=== PATIENT | male | born 2000 | race Caucasian/White ===

== ENCOUNTER 2022-01-20 09:12 | Observation (INO) | payer OTHER, SELFPAY ==
--- NOTE | ~2022-01-20 | CT_ITS ---
EXAMINATION: CT ABDOMEN AND PELVIS WITH CONTRAST CLINICAL INFORMATION: Right lower quadrant pain and tenderness COMPARISON: None TECHNIQUE: Multidetector volumetric images were obtained from the superior aspect of the liver through the pubic symphysis following administration 85 mL of Omnipaque 350 intravenous contrast. Sagittal and coronal reformatted images were obtained on the technologist's workstation. Oral contrast: No This CT examination was performed using dose optimization techniques as appropriate, variously including the following: *Automated exposure control *Adjustment of mA and/or kV according to patient size (this includes techniques or standardized protocols for targeted exams where dose is matched to indication/reason for exam; i.e. extremities or head) *Use of iterative reconstruction technique DLP: 729 mGy-cm FINDINGS: LUNG BASES: The visualized lung bases are unremarkable. LIVER, GALLBLADDER, AND BILIARY TREE: The liver is normal in size, shape, and attenuation. No focal hepatic lesion or biliary ductal dilatation is present. The gallbladder is unremarkable with no evidence of radiopaque gallstones, gallbladder wall thickening, or obvious pericholecystic inflammatory changes. PANCREAS: Unremarkable. SPLEEN: Unremarkable. ADRENAL GLANDS: Unremarkable. KIDNEYS AND URETERS: The kidneys are normal in size, shape, and attenuation. No hydronephrosis, hydroureter, or calculi seen. No perinephric stranding. BLADDER: Decompressed with no gross abnormality. GASTROINTESTINAL TRACT: The stomach is unremarkable. Normal caliber small bowel. No obstruction. There is mild inflammation noted along the course of the appendix. The appendix is normal in size, measuring up to 0.7 cm. No fluid collection. The remainder of the colon is unremarkable. No free air. ABDOMINAL WALL: No significant hernia is appreciated. LYMPH NODES: Normal. VASCULAR: Unremarkable. PELVIC VISCERA: The prostate and seminal vesicles are unremarkable. OSSEOUS STRUCTURES: No acute or suspicious osseous abnormality. CT/CT abdomen pelvis w con IMPRESSION: Mild inflammatory changes are seen along the course of the appendix. Although the appendix is not dilated, this is concerning for acute appendicitis. Fleischner guidelines were followed.
[2022-01-20 10:22] VITALS: PULSE 84; RESP 16; TEMP 36.6; O2SAT 100; BMI 32.5
--- NOTE | 2022-01-20 10:50 | ED.ABDPAIN ---
HPI - Abdominal Pain General Chief Complaint: Abdominal Pain Stated Complaint: appendix pain Time Seen by Provider: 01/20/22 10:37 Source: patient Mode of arrival: ambulatory Limitations: no limitations History of Present Illness HPI narrative: 21-year-old healthy male presents to the ER for evaluation of acute onset of right lower quadrant pain that started suddenly at 02:00 this morning. He reports the pain is ?manageable when he is lying down or sitting still. The pain is worse when he walks, moves around. He denies any nausea, vomiting, chills, fevers. He reports he last had a bowel movement this morning and it was loose watery diarrhea. No blood. He has never had any abdominal surgeries. The pain does not radiate. He denies any urinary symptoms. MD elicited complaint: abdominal pain Pertinent past history: none Onset (ago): hour(s) (8) Pain Consistency: constant Location: RLQ Severity: moderate Pain scale (0-10): 6 Quality: aching Radiation: none Migration to: no migration Exacerbating factors: movement Relieving factors: rest Associated symptoms: diarrhea Related Data Allergies Allergy/AdvReac Type Severity Reaction Status Date / Time Unable to Assess Allergy Unverified 01/20/22 10:38 Review of Systems Review of Systems Constitutional: No Fever, No Chills ENT/Mouth: No sore throat, No Rhinorrhea, No Swallowing Difficulty Cardiovascular: No Chest Pain, No SOB, No Orthopnea, No Edema Respiratory: No Cough, No Sputum Gastrointestinal: No Nausea, No Vomiting,+ Diarrhea, + abdominal Pain, No Hematochezia, No Melena Genitourinary: No Dysuria, No Urinary Frequency, No Hematuria Musculoskeletal: No joint pain, No Myalgias Skin: No Skin Lesions, No rash Neuro: No Weakness, No Numbness, No Dizziness, No Headache Psych: No Anxiety/Panic, No Depression Heme/Lymph: No Bruising, No Lymphadenopathy Endocrine: No Polyuria, No Polydipsia PMFSH Social History Social History Advance Directives: No Advance Directives Information Provided: No Physical Exam ED Vital Signs: Vital Signs - 24 hr 01/20/22 10:22 Temperature 97.9 F Pulse Rate 84 Respiratory Rate 16 Pulse Oximetry 100 Oxygen Delivery Method Room Air BMI result Body Mass Index 32.5 Appearance: Alert. Oriented X3. No acute distress. Non-toxic appearing Eyes: Pupils equal, round and reactive to light. ENT: Pharynx normal. Neck: Normal inspection. Neck supple. CVS: Normal heart rate and rhythm. Pulses normal. Respiratory: No respiratory distress. Breath sounds normal. Abdomen: Soft. TTP at RLQ, no rebound or guarding. +BS x4 Skin: Skin warm and dry. Normal skin color. Normal skin turgor. No rashes. Extremities: No lower extremity edema. Neuro: Oriented X 3. Slow but steady gait. Pain in RLQ reproduced with slight jump Course Course Course Narrative: 21 yo male with no significant medical history presents to the ER for evaluation of acute onset of right lower quadrant pain that started 02:00 today. He appears well. He has tenderness in his right lower quadrant but is abdomen is nice and soft. His vital signs are within normal limits. Will plan to get lab workup and CT scan for further evaluation. Reevaluation(s) Reevaluation #1: Labs are reassuring. Normal WBC. Pain is well controlled when he is still. Holding off on pain meds for now. CT scan is pending. Reevaluation #2: CT scan showing inflammation, consistent with acute appendicitis. Dr. Caldrea was consulted who come evaluate the patient. IV Zosyn ordered in the meantime. Reevaluation #3: Dr. Caldera evaluated the patient and will admit. Patient updated on plan of care. Consultations Consultation #1: General surgery-Dr. Caldera MDM - Abdominal Pain Lab Data Result diagrams: 01/20/22 11:19 01/20/22 11:19 Labs: Lab Results 01/20/22 01/20/22 Range/Units 11:19 11:19 WBC 10.4 (4.8-10.8) X10*3/uL RBC 5.56 (4.60-5.80) X10*6/uL Hgb 15.6 (14.0-18.0) g/dl Hct 44.6 (42.0-52.0) % MCV 80.2 (80.0-98.0) fL MCH 28.1 (27.0-33.0) pg MCHC 35.0 (31.0-36.0) g/dl RDW 12.1 (11.0-16.0) % Plt Count 173 (160-400) X10*3/uL MPV 11.9 (9.4-12.4) fL Immature Gran % (Auto) 0.3 (0.0-0.4) % Neut % (Auto) 81.0 H (45-73) % Lymph % (Auto) 12.1 L (20-40) % [place] % (Auto) 6.2 (2-11) % Eos % (Auto) 0.1 (0-4) % Baso % (Auto) 0.3 (0-2) % Lymph # (Auto) 1.3 (1.2-4.9) X10*3/uL [place] # (Auto) 0.6 (0.1-1.2) X10*3/uL Eos # (Auto) 0.0 (0.0-0.4) X10*3/uL Baso # (Auto) 0.0 (0.0-0.2) X10*3/uL Abs Immat Gran (auto) 0.03 (0.00-0.03) X10*3/uL Absolute Neuts (auto) 8.4 H (2.0-8.3) x10*3/uL Absolute Nucleated RBC 0.000 (0.0-0.012) X10*3/uL Nucleated RBC % (auto) 0.0 (0.0-0.2) /100WBC Sodium 140 (135-145) mmol/L Potassium 4.2 (3.3-5.1) mmol/L Chloride 104 (96-108) mmol/L Carbon Dioxide 27 (22-29) mmol/L Anion Gap 13 (12-20) BUN 15 (9-16) mg/dL Creatinine 1.21 (0.5-1.4) mg/dL Estim Creat Clear Calc 131.4 Estimated GFR > 60 Random Glucose 101 (60-115) mg/dL Calcium 9.4 (8.4-10.2) mg/dL Magnesium 1.9 (1.6-2.6) mg/dL Total Bilirubin 0.6 (0.0-1.0) mg/dL Direct Bilirubin 0.2 (0.0-0.5) mg/dL AST 17 (5-37) U/L ALT 21 (0-40) U/L Alkaline Phosphatase 39 (39-117) U/L Total Protein 7.7 (6.5-8.0) g/dL Albumin 4.7 (3.5-5.0) g/dL Discharge Plan Discharge Clinical Impression: Acute appendicitis Patient Disposition: Admitted As Inpatient
[2022-01-20 11:23] LABS: MANUAL DIFF FLAG NO
[2022-01-20 11:27] LABS: Basophils Percent Auto 0.3 % (0-2); Eosinophils Percent Auto 0.1 % (0-4); Hematocrit 44.6 % (42.0-52.0); Hemoglobin 15.6 g/dl (14.0-18.0); Imm Gran Abs Auto 0.03 X10*3/uL (0.00-0.03); Imm Gran Pct Auto 0.3 % (0.0-0.4); Lymphocytes Absolute Auto 1.3 X10*3/uL (1.2-4.9); Lymphocytes Percent Auto 12.1 % (20-40); Mean Corpuscular Hemoglobin 28.1 pg (27.0-33.0); Mean Corpuscular Volume 80.2 fL (80.0-98.0); Mean Platelet Volume 11.9 fL (9.4-12.4); Monocytes Absolute Auto 0.6 X10*3/uL (0.1-1.2); Monocytes Percent Auto 6.2 % (2-11); Neutrophils Absolute Auto 8.4 x10*3/uL (2.0-8.3); Platelet Count 173 X10*3/uL (160-400); Red Blood Count 5.56 X10*6/uL (4.60-5.80); Red Cell Distribution Width 12.1 % (11.0-16.0); White Blood Count 10.4 X10*3/uL (4.8-10.8)
[2022-01-20 11:44] LABS: Alanine Aminotransferase 21 U/L (0-40); Albumin Level 4.7 g/dL (3.5-5.0); Alkaline Phosphatase 39 U/L (39-117); Anion Gap 13 (12-20); Aspartate Amino Transferase 17 U/L (5-37); Bilirubin Direct 0.2 mg/dL (0.0-0.5); Bilirubin Total 0.6 mg/dL (0.0-1.0); Blood Urea Nitrogen 15 mg/dL (9-16); Calcium 9.4 mg/dL (8.4-10.2); Carbon Dioxide 27 mmol/L (22-29); Chloride 104 mmol/L (96-108); Creatinine Clr Calc Pharmacy 131.4; Estimated Glomerular Filt Rate > 60; Glucose Random 101 mg/dL (60-115); Magnesium 1.9 mg/dL (1.6-2.6); Potassium 4.2 mmol/L (3.3-5.1); Sodium 140 mmol/L (135-145); Total Protein 7.7 g/dL (6.5-8.0)
[2022-01-20] MEDS: iohexoL 350 MG/ML 100 ML INFUS..BTL IV (12:54)
[2022-01-20] MEDS: Piperacillin Sodium/Tazobactam 3.375 GM in 0.9 % Sodium Chloride 50 ML IV ×2 (13:59→20:19)
--- NOTE | 2022-01-20 14:15 | PHA.MEDREC ---
Pharmacy Consult ? Medication Reconciliation Pharmacy has completed the medication reconciliation. Patient reports only using ibuprofen for headaches or back pain.
[2022-01-20 14:25] VITALS: BP 137/81; PULSE 92; RESP 16; TEMP 37.2; O2SAT 96
--- NOTE | 2022-01-20 14:43 | PM.HPGS ---
History of Present Illness History of Present Illness Date of Service: 01/20/22 Chief complaint: RIGHT LOWER QUADRANT ABDOMINAL PAIN EARLY APPENDIC Narrative: Ryan Howard is a 21 year old male presenting with complaints of right lower quadrant pain. Pain began at 02:00 o'clock this morning and was localized to the right lower quadrant. He initially thought the pain was a muscle pull and was about a 5/10. The pain is not changed significantly in severity or location. The pain does increase with ambulation and improves when lying still. He denies nausea, vomiting, anorexia, fever, chills, diarrhea or constipation. He did report eating some bad food from [employer] yesterday. In the emergency department patient was noted to be tender in the right lower quadrant. Admitting laboratories revealed WBC of 10. CT abdomen and pelvis revealed a normal sized appendix with no surrounding fluid however some mild inflammatory changes surrounding the appendix suggestive of possibly early appendicitis. No appendicolith was identified. The patient is admitted to the surgical service for IV antibiotics and possible appendectomy if his symptoms worsen. Review of Systems Review of Systems: Yes all other systems are reviewed and are negative Constitutional: Constitutional: Denies chills, Denies fever(s), Denies night sweats and Denies poor appetite Cardiovascular: Cardiovascular: Denies dyspnea Respiratory: Respiratory: Denies cough and Denies dyspnea Gastrointestinal: Gastrointestinal: Reports abdominal pain, Denies constipation, Denies diarrhea, Denies nausea and Denies vomiting PMFSH Social History Social History Advance Directives: No Advance Directives Information Provided: No Meds Allergies Allergy/AdvReac Type Severity Reaction Status Date / Time Unable to Assess Allergy Unverified 01/20/22 10:38 Active Medications: Current Medications Acetaminophen (Acetaminophen 325 Mg Tablet) 650 mg PO QID PRN PRN Reason: headache, temp > 101 Hydromorphone HCl (Hydromorphone Hcl 1 Mg/Ml Syringe) 0.5 mg IVPUSH Q4H PRN; Protocol PRN Reason: Pain, Severe (Pain Scale 7-10) Dextrose/Lactated Ringer's (D5lr) 1,000 mls @ 80 mls/hr IVCONT .[id number] DWIGHT Piperacillin Sod/Tazobactam (Sod 3.375 gm/ Sodium Chloride) 50 mls @ 100 mls/hr IV Q6H DWIGHT Ondansetron HCl (Ondansetron Hcl 4 Mg/2 Ml Vial) 4 mg IVPUSH QID PRN PRN Reason: Nausea Oxycodone HCl (Oxycodone Hcl Immed Release 5 Mg Tablet) 5 mg PO Q6H PRN PRN Reason: Pain, Moderate (Pain Scale 4-6 Pharmacy Consult (Consult Rx Perform Med Rec) 1 each MISCELLANE ONCE PRN PRN Reason: Consult order Sodium Chloride (0.9 % Sodium Chloride Flush 3 Ml Syringe) 3 ml IVFLUSH QSHIFT [facility] Zolpidem Tartrate (Zolpidem Tartrate 5 Mg Tablet) 5 mg PO BEDTIME PRN PRN Reason: Insomnia Home Medications Medication Instructions Recorded Confirmed Last Taken Type ibuprofen 400 mg tablet 400 mg PO Q8H PRN Headache 01/20/22 01/20/22 01/18/22 History Physical Exam Vital Signs: Vital Signs: Last Vital Signs Temp 98.9 F 01/20/22 14:25 Pulse 92 01/20/22 14:25 Resp 16 01/20/22 14:25 BP 137/81 01/20/22 14:25 Pulse Ox 96 01/20/22 14:25 O2 Del Method 01/20/22 14:25 BMI result Body Mass Index 32.5 Const: General: healthy appearing, no acute distress and well developed Nutritional Appearance: well nourished Orientation/consciousness: patient oriented x3 Limitations: no limitations HEENT: Head: Yes normocephalic and Yes atraumatic Ears: hearing grossly normal bilaterally Resp: Effort & Inspection: normal respiratory effort, no audible wheezes, no cough and no respiratory distress Auscultation: clear to auscultation bilaterally GI: Inspection: Yes normal to inspection Palpation (GI): Soft to palpation, Tenderness to palpation present (GI) in the RLQ; with no rebound tenderness and Rovsing's sign negative, no guarding, not rigid and No hepatosplenomegaly present Percussion: Yes normal to percussion Auscultation: normal bowel sounds Rectal Exam - Male: Yes deferred Skin: General skin exam: no rashes or lesions noted Neuro: General: patient oriented x3 Extrem: General: Yes no clubbing, cyanosis or edema Results Results Labs: Short CBC 08/26/22 Range/Units 11:19 WBC 10.4 (4.8-10.8) X10*3/uL Hgb 15.6 (14.0-18.0) g/dl Hct 44.6 (42.0-52.0) % Plt Count 173 (160-400) X10*3/uL BMP 01/20/22 11:19 Sodium 140 Potassium 4.2 Chloride 104 Carbon Dioxide 27 BUN 15 Creatinine 1.21 Calcium 9.4 Liver Function 01/20/22 Range/Units 11:19 Total Bilirubin 0.6 (0.0-1.0) mg/dL Direct Bilirubin 0.2 (0.0-0.5) mg/dL AST 17 (5-37) U/L ALT 21 (0-40) U/L Alkaline Phosphatase 39 (39-117) U/L Albumin 4.7 (3.5-5.0) g/dL Assessment and Plan (1) Acute appendicitis: Status: Acute Plan 21-year-old male patient presenting with complaints of abdominal pain in the right lower quadrant which began approximately 2 a.m. this morning. Remained in the right lower quadrant without radiation in seems to increase with the ambulation. He denies nausea, vomiting, fever or chills. He also denies anorexia. On examination he is tender in the right lower quadrant without rebound, guarding, or rigidity. Admitting laboratories revealed normal WBC and CT of the abdomen reveals some mild inflammatory changes of the appendix with no fecalith within the appendix. Patient appears to have very mild and early appendicitis based on the CT findings. We discussed laparoscopic appendectomy verses non operative management with IV antibiotics. As the symptoms are very mild and there is no fecalith by CT, he would be a good candidate for non operative management. After discussion of the risks, alternatives in benefits, he agrees with non operative management with IV antibiotics. He will be placed on Zosyn and labs will be rechecked in the morning. As is abdomen is soft and nondistended with minimal tenderness I will start him on a diet tonight. If he feels improved tomorrow without nausea, vomiting, or increased abdominal pain and is WBC remains normal he may be converted to oral antibiotics and discharged to home with follow-up in my office in approximately 1 week. He expressed understanding and agrees with this plan. Quality Stroke Does the patient have a stroke diagnosis?: No VTE Prior VTE?: No VTE Risk Level:: Surgical - low VTE Device Contraindication: N/A - Device Ordered VTE Drug Contraindication: Treatment Not Indicated Procedures Date of Service Date of Service: 01/20/22
[2022-01-20] MEDS: Dextrose 5 % and Lactated Ring 1,000 ML 80 ML IVCONT (15:40)
--- NOTE | 2022-01-20 16:36 | MHC.CM.PN ---
CM met with patient assigned to observation. SABINE 01/20. Pfizer x2. Declines HCP. Employed. Lives with mother. No DME/services. D/C plan is home without services. Will f/u with surgeon in a week per Dr. Caldera's notes. Pt will arrange transportation home. CM to follow for d/c needs.
[2022-01-20 17:04] LABS: COVID-19 Test Negative (Negative)
--- NOTE | 2022-01-20 18:01 | PC.NURSE ---
PT INFORMED TW THAT HE WANTS TO SPEAK WITH DR LEOS R/T STAYING IN THE HOSPITAL OVERNIGHT OR GOING HOME AND TREATING HIS APPENDICITIS WITH PO ABX. NOTIFIED, AWAITING RESPONCE.
--- NOTE | 2022-01-20 18:25 | PC.NURSE ---
PLAN FOR PT TO RECEIVE 20:00 DOSE OF IV ABX THEN D/C HOME, DR LEOS, PT AND FAMILY ON BOARD. T/W EXPLAINED THE RISKS OF LEAVING TO THE PT AND FAMILY MEMBER AT BEDSIDE, ENCOURAGED TO COME BACK IF CHANGE IN SX, SHARP PAIN, FEVERS, N/V AND GENERALLY FEELING THE NEED TO RETURN.
--- NOTE | 2022-01-20 18:32 | PM.DS ---
DS: Providers Provider Date of Service: 01/20/22 Date of admission: 01/20/22 13:57 Date of discharge: 01/20/22 Primary care physician: Mikhail Hernandez MD Admitting clinician: Paul Caldera Discharging clinician: Paul Caldera DS: Diagnosis Discharge Diagnosis (1) Acute appendicitis: Status: Acute DS: Summary Hospital Course Hospital Course: Ryan Howard is a 21 year old male presenting with complaints of right lower quadrant pain.? Pain began at 02:00 o'clock the morning of 01/20/2022 and was localized to the right lower quadrant.? He initially thought the pain was a muscle pull and was about a 5/10.? The pain did not change significantly in severity or location.? The pain does increase with ambulation and improves when lying still.? He denied nausea, vomiting, anorexia, fever, chills, diarrhea or constipation.? He did report eating some bad food from [employer] yesterday.? In the emergency department patient was noted to be tender in the right lower quadrant.? Admitting laboratories revealed WBC of 10.? CT abdomen and pelvis revealed a normal sized appendix with no surrounding fluid however some mild inflammatory changes surrounding the appendix suggestive of possibly early appendicitis.? No appendicolith was identified.? On examination the patient is found to be tender in the right lower quadrant to deep palpation but without rebound, guarding, or rigidity. There are no peritoneal signs appreciated. Patient otherwise appears much more comfortable. The initial plan was for the patient to be placed on IV antibiotics and observed overnight. He was also given the option of being discharged home on oral antibiotics or proceeding to surgery for laparoscopic appendectomy. Patient later decided that he felt comfortable going home. He was placed on oral antibiotics after receiving 2 doses of IV antibiotic and subsequently been discharged to home. He was instructed to return to the Pain worsen or if he develops fever or chills. He should follow up my office in approximately 1 week. Status at Discharge Functional status at discharge: independent ambulation Overall status at discharge: patient is back to baseline Time Spent with Patient Time attestation: Total time spent providing and/or coordinating discharge services: Discharge coordination time: Less than 30 minutes Quality: Safe Use of Opioids Does Pt have an Active Cancer Diagnosis on the Problem List?: No Quality: Stroke Does the patient have a stroke diagnosis?: No Physical Exam Vital Signs: Vital Signs: Last Vital Signs Temp 98.9 F 01/20/22 14:25 Pulse 92 01/20/22 14:25 Resp 16 01/20/22 14:25 BP 137/81 01/20/22 14:25 Pulse Ox 96 01/20/22 14:25 O2 Del Method 01/20/22 14:25 BMI result Body Mass Index 32.5 Const: General: healthy appearing, no acute distress and well developed Nutritional Appearance: well nourished Orientation/consciousness: patient oriented x3 Limitations: no limitations HEENT: Head: Yes normocephalic and Yes atraumatic Ears: hearing grossly normal bilaterally Resp: Effort & Inspection: normal respiratory effort, no audible wheezes, no cough and no respiratory distress Auscultation: clear to auscultation bilaterally GI: Inspection: Yes normal to inspection Palpation (GI): Soft to palpation, Tenderness to palpation present (GI) in the RLQ; with no rebound tenderness and Rovsing's sign negative, no guarding, not rigid and No hepatosplenomegaly present Percussion: Yes normal to percussion Auscultation: normal bowel sounds Rectal Exam - Male: Yes deferred Skin: General skin exam: no rashes or lesions noted Neuro: General: patient oriented x3 Extrem: General: Yes no clubbing, cyanosis or edema DS: Data Data Completed and Pending Labs on day of discharge: Laboratory Results - last 24 hr 01/20/22 01/20/22 01/20/22 11:19 11:19 16:44 WBC 10.4 RBC 5.56 Hgb 15.6 Hct 44.6 MCV 80.2 MCH 28.1 MCHC 35.0 RDW 12.1 Plt Count 173 MPV 11.9 Immature Gran % (Auto) 0.3 Neut % (Auto) 81.0 H Lymph % (Auto) 12.1 L [place] % (Auto) 6.2 Eos % (Auto) 0.1 Baso % (Auto) 0.3 Lymph # (Auto) 1.3 [place] # (Auto) 0.6 Eos # (Auto) 0.0 Baso # (Auto) 0.0 Abs Immat Gran (auto) 0.03 Absolute Neuts (auto) 8.4 H Absolute Nucleated RBC 0.000 Nucleated RBC % (auto) 0.0 Sodium 140 Potassium 4.2 Chloride 104 Carbon Dioxide 27 Anion Gap 13 BUN 15 Creatinine 1.21 Estim Creat Clear Calc 131.4 Estimated GFR > 60 Random Glucose 101 Calcium 9.4 Magnesium 1.9 Total Bilirubin 0.6 Direct Bilirubin 0.2 AST 17 ALT 21 Alkaline Phosphatase 39 Total Protein 7.7 Albumin 4.7 COVID-19 (EDU) Negative COVID-19 Clin Com See Note Discharge Plan Discharge Anticipated Discharge Date/Time: 01/20/22 20:13 Patient Disposition: Home, Self-Care Referrals: Mikhail Hernandez MD [Primary Care Provider] - 1 Week Paul Caldera MD [Physician] - 1 Week Discharge Medications: New amoxicillin-pot clavulanate [Augmentin] 500-125 mg tablet 1 tab PO Q8H Qty: 30 0RF Continued ibuprofen 400 mg Tablet 400 mg PO Q8H PRN (Reason: Headache) Discharge Orders: Discharge Order (Routine); Ordered 01/20/22 Ordered By: Irena Escalante Diet: Advance to usual diet Activity on Discharge: As tolerated Stand Alone Forms: Patient Portal Discharge page Care Plan Goals: Return to normal activity and diet without abdominal pain Health Concerns: Abdominal pain right lower quadrant Plan of Treatment: IV antibiotic converted to oral antibiotics Assessment: Early acute appendicitis Discharge Date/Time: 01/21/22 07:49
--- NOTE | 2022-01-20 20:14 | PC.NURSE ---
I spoke with Dr. Escalante at this time about this pts plan to be discharged after the completion of his 8pm Zosyn. She states that since the pt was originally given the option to be discharged from the ER he can in fact leave the ER as a discharge rather than as an AMA. She states she will have PO Augmentin ready for him at his pharmacy in the morning and requested that we encourage the pt to complete the course, to call surgery on Sunday to arrange for a follow up, and to return to the ED for anything new or worse. I relayed all of this to Ryan and he verbalized an understanding. At this time hes feeling well - mild RLQ abdominal pain and tenderness. NO nausea. No vomiting. He has taken ane ntire tray of food and PO fluids without difficulty. No fevers or chills or generalized aches. We will contionue to monitor and DC at completion of IV abx.
[2022-01-20] MEDS: Acetaminophen 325 MG TABLET 650 MG PO (20:25)
--- NOTE | 2022-01-20 20:27 | PC.NURSE ---
Assumed care of pt. at 1900. Pt. is wanting to go home after he receives his 2000 dose of abx and will contact surgery from home. Pt. complains of a headache and medicated with acetaminophen per JUL. Pt. resting comfortably in bed while abx run.
--- NOTE | 2022-01-20 22:06 | PC.NURSE ---
I assumed care of Ryan at 1900. At that time it was reported to me that Ryan, who initially informed the admitting surgeon that he would agree to be admitted, had decided he would prefer to be discharged. Initially the pt was given the option for admission or discharge by the admitting surgeon. Therefore I contacted surgeon eye care professional Boris who informed me that the pt could be officially discharged rather than signing out AMA even though he has already been formally admitted to the hospital. Laol GOLDEN also aware of this. Boris GOLDEN gave me verbal instructions to give to the pt at time of DC. We provided him with these instructions per surgery: Complete course of Augmentin that has been called in to your pharmacy. Return for new or worse symptoms. Call surgery first thing Sunday AM to schedule a follow up (contact info for [facility] provided). Pt was given DC papers with all of these instructions and he verbalized an understanding. He verbalized an understanding of all DC orders and ambulated out of the ED independently and with steady gait.
== END 2022-01-21 07:49 | disposition home or self-care (01) ==
LOC: HO.ED 10:49 → HO.EDOVER 14:09 → HO.S3 01-21 07:47
PROVIDERS: Physician Assistant; Admitting Provider Surgery; Emergency Provider Emergency Medicine; PCP Pediatrics; Visit Provider Surgery
DX: K35.80 Unspecified acute appendicitis (principal); I10 Essential (primary) hypertension; R10.31 Right lower quadrant pain; Z20.822 Contact with and (suspected) exposure to COVID-19; Z79.899 Other long term (current) drug therapy
CPT/HCPCS: 36415; 74177; 80048; 80076; 83735; 85025; 87635; 96365; 96366; 96375; 96376; 99218; 99284; J2543; Q9967

== ENCOUNTER → 2022-01-31 14:57 | Outpatient (BNVA) | payer OTHER, SELFPAY | PROVIDERS: PCP Pediatrics; Visit Provider Surgery | DX: K35.80 Unspecified acute appendicitis (principal) | CPT/HCPCS: 99212 ==

== ENCOUNTER 2022-02-06 10:28 | Day surgery (SDC) | payer OTHER, SELFPAY ==
--- NOTE | 2022-02-06 10:44 | P.CONAN_ITS ---
HPI - Anesthesia Eval Consult details Narrative: 21 yo male patient for laparoscopic appendectomy, possible open PMFSH Active Problems Active Problems: Healthy Past Medical History Medical History Acute appendicitis Family History Family history of problems with anesthesia: No Surgical History History of Problems with Anesthesia: No ([place] as a child. Does not remember procedure?stitches) Social History Social History Patient Tobacco Use Status: Never used Tobacco Use of substances other than those prescribed or required for medical reasons: No Are you DNR?: No Advance Directives: No Advance Directives Information Provided: Yes service: No Current occupational status: employed Meds Allergies Allergy/AdvReac Type Severity Reaction Status Date / Time No Known Allergies Allergy Verified 01/31/22 15:05 Active Medications: Current Medications Cefotetan Disodium 2 gm/ (Sodium Chloride) 50 mls @ 100 mls/hr IV PREOP ONE Stop: 02/06/22 11:08 Lactated Ringer's (Lr) 1,000 mls @ 100 mls/hr IVCONT .Q10H [facility] Home Medications Medication Instructions Recorded Confirmed Last Taken Type ibuprofen 400 mg tablet 400 mg PO Q8H PRN Headache 01/20/22 01/31/22 01/18/22 History Exam Exam Date and Time: February 06, 2022 1044 Height,Weight and Vital Signs: Height 6 ft 3 in Weight 115.666 kg Airway Mallampati Class: II TM Dist: >3cm Neck ROM: Full Loose/Missing/Broken Teeth: No Heart: RRR Lungs: CTAB Assessment and Plan Assessment Anesthesia Assessment: Anesthesia Plan Discussed and Chart Reviewed Final Anesthetic Review Family History of Problems with Anesthesia: No History of Problems with Anesthesia: No ([place] as a child. Does not remember procedure?stitches) NPO: Yes ASA Class: I Final Preanesthetic Review: No Changes in Pt Med Stat, Meds/Allgs Chart Reviewed, Consent Obtained/Reviewed and Anes Risks/Benef Reviewed Patient Risk: Low Procedure Risk: Low Assessment/Block/Sedation in SS: Assess/Block/Sedation-SS Anesthetic Plan Anesthetic Plan: GA Disposition: Standard PACU
[2022-02-06 10:55] VITALS: BMI 31.8
[2022-02-06] MEDS: Lactated Ringers 1,000 ML 100 ML IVCONT (11:18)
--- NOTE | 2022-02-06 13:27 | MHC.SHP ---
Pre-Procedural Eval Section A Date of Service: 02/06/22 The patient is an INPATIENT: No Changes since office visit: Yes Patient answered all questions; No Cold of Flu in the past 2 weeks, No New Medical Problems and No Changes in Medication The History & Physical has been completed within 30 days and I have reviewed it.: Yes Section B Chief Complaint: acute appendicitis Allergies: Allergies Allergy/AdvReac Type Severity Reaction Status Date / Time No Known Allergies Allergy Verified 01/31/22 15:05 Plan Diagnosis/Plan: Unchanged I have reviewed the history and physical and performed a pertinent physical examination on my patient. No changes have occurred unless specified.
--- NOTE | 2022-02-06 14:41 | P.OP_ITS ---
Operative Note Operative Note Date of Service: 02/06/22 Narrative: Preoperative diagnosis: Acute appendicitis Postoperative diagnosis: Same Procedure: Laparoscopic appendectomy Surgeon: Paul Caldera MD Asphalt Distributor Operator: Antonia Vergara PA-C, PATRIA Thomas Anesthesia: General endotracheal Indications for procedure: 21-year-old male patient presenting with complaints of abdominal pain in the right upper quadrant seen initially in the emergency department. Patient stay for several doses of antibiotics and fell improved. He was subsequently discharged home on oral antibiotics. He return to the office but was still having some mild discomfort in the right lower quadrant consistent with a mild acute appendicitis. He presents today for laparoscopic appendectomy. Operative findings: Minimal inflammation of the appendix Specimen: appendix Estimated blood loss: 1 mL Complications: non Procedure details: Patient was brought to the OR and placed in a supine position. After administering general anesthesia the patient's abdomen was prepped with ChloraPrep and draped in a sterile fashion. A surgical time-out was called and consent confirmed. Patient received preoperative antibiotics and Venodyne boots were in place. Local anesthesia consisting of 0.5% Sensorcaine with epinephrine was infiltrated in periumbilical region. A 5 mm incision was made below the umbilicus and carried down through subcutaneous tissue. A Veress needle was then inserted while elevating abdominal cavity with towel clips. After a positive drop test the abdomen was insufflated to a pressure of 15 mm of mercury. The Veress needle was removed and a 5 mm trocar inserted. The camera was then inserted in the abdomen explored. A 2nd 5 mm trocars placed in the lower midline. A 12 mm trocar was then placed in the left lower quadrant. The patient was then placed in a Trendelenburg position and rotated to the left. The appendix was identified in the right lower quadrant and brought up using blunt dissecting clamps. The mesentery of the appendix was then divided using the LigaSure. The appendiceal artery was cauterized and divided using the LigaSure. Dissection was continued down to the base of the cecum. An Endo-IVÁN stapler with a purple reload was then used to divide the appendix at the base with the cecum. The appendix was then placed in Endo-Catch bag and brought out through the left lower quadrant incision. The abdomen was then irrigated with saline solution and suctioned dry. Wounds were checked for hemostasis. CO2 was then evacuated from the abdominal cavity and all trocars removed. Fascia was closed in the left lower quadrant incision using a [id number] 0 Polysorb suture. Skin was closed at all incisions using a subcuticular 4-0 Polysorb suture. Steri-Strips 2 x 2 gauze and Tegaderm were then applied. The patient tolerated the procedure well. Sponge, instrument, needle counts reported as correct. The patient was transferred to PACU in stable condition.
[2022-02-06 14:50] VITALS: BP 151/92; PULSE 98; RESP 16; TEMP 36.6; O2SAT 100
[2022-02-06 14:55] VITALS: BP 152/96; PULSE 112; RESP 16; O2SAT 96
[2022-02-06 15:00] VITALS: BP 146/96; PULSE 101; RESP 16; O2SAT 96
[2022-02-06 15:05] VITALS: BP 155/95; PULSE 105; RESP 16; TEMP 36.9; O2SAT 96
[2022-02-06 15:20] VITALS: BP 144/76; PULSE 89; RESP 18; O2SAT 96
[2022-02-06 15:35] VITALS: BP 129/88; PULSE 103; RESP 18; TEMP 36.1; O2SAT 95
== END 2022-02-06 16:14 | disposition home or self-care (01) ==
PROVIDERS: PCP Pediatrics; Visit Provider Surgery
PROC: 0DTJ4ZZ Resection of Appendix, Percutaneous Endoscopic Approach (ICD-10-PCS; CPT 44970; principal; 2022-02-06 12:30)
DX: K35.80 Unspecified acute appendicitis (principal)
CPT/HCPCS: 44970; 88304; J1100; J1170; J2250; J2405; J2795; J3010